=== PATIENT | female | born 1960 | race Caucasian/White ===

== ENCOUNTER → 2016-08-10 | Outpatient (CLI) | payer BC ==
[~2016-08-10] MED LIST: ALEN70TA4 PO; ANAS1TAB19 PO; CALC1TAB9 PO; CHOL100010 PO; LEVO88TA PO; LORA-741 PO; OMEP40CA PO; PRLSR20 PO; RANI150T3 PO; ZOLP10TA PO
== END | disposition home or self-care (01) ==
LOC: C.LABPVFM 14:20
PROVIDERS: ATTEND Internal Medicine Endocrinology, Diabetes & Metabolism
DX: E03.9 Hypothyroidism, unspecified (principal); M81.0 Age-related osteoporosis without current pathological fracture; E34.9 Endocrine disorder, unspecified

== ENCOUNTER → 2016-08-26 | Outpatient (CLI) | payer BC ==
[2016-08-26 09:53] LABS: CALCIUM 10.4 mg/dl (8.5-10.1)
[2016-08-26 10:08] LABS: THYROID STIMULATING HORMONE 1.27 uIu/ml (0.300-4.500)
== END | disposition home or self-care (01) ==
LOC: C.LAB1850 08:17
PROVIDERS: ATTEND Internal Medicine Endocrinology, Diabetes & Metabolism
DX: E06.3 Autoimmune thyroiditis (principal); E34.9 Endocrine disorder, unspecified

== ENCOUNTER → 2016-11-10 | Outpatient (CLI) | payer BC ==
[~2016-11-10] MED LIST changes: -OMEP40CA PO; -RANI150T3 PO
--- NOTE | 2016-11-10 16:52 | MAMMOGRAPHY REPORT ---
UNILATERAL RIGHT DIGITAL DIAGNOSTIC MAMMOGRAM TOMOSYNTHESIS WITH CAD AND TARGETED RIGHT ULTRASOUND: 11/10/2016 CLINICAL HISTORY: 56-year-old woman with a personal history of left breast cancer presents for follo w-up in the right breast. There is a probable microcyst cluster seen in the 9:00 axis on targeted u ltrasound. TECHNIQUE: Right breast tomosynthesis in addition to standard 2D mammography was performed. Current study was also evaluated with a Computer Aided Detection (CAD) system. COMPARISON: Comparison is made to exams dated: 05/12/2016 ultrasound, 05/12/2016 mammogram, 016 mammogram, 04/10/2015 mammogram, 02/07/2014 mammogram, and 02/03/2013 ultrasound - [facility]. BREAST COMPOSITION: The tissue of the right breast is heterogeneously dense, which may obscure smal l masses. FINDINGS: The parenchymal pattern of the right breast is similar to prior mammograms. Again seen is an oval, 6.4 mm circumscribed mass in the lateral anterior aspect of the breast (CC tomosynthesis s lice 18). There are scattered benign-appearing coarse and round microcalcifications. No new suspic ious mass, architectural distortion or cluster of microcalcifications is seen. Repeat targeted ultrasound was performed in the 9:00 axis of the right breast. In the 9:00 periareo lar breast, a microcyst cluster is again identified, measuring 4.8 x 3.7 x 5.5 mm. Another anechoic cyst with thin internal nonvascular septation is seen in the 8:00 right breast, 2 cm from the nippl e, measuring 4.8 x 2.0 x 4.4 mm. No suspicious solid mass is seen in the visualized right breast on ultrasound. IMPRESSION: ACR BI-RADS CATEGORY 2: BENIGN, TARGETED ULTRASOUND ACR BI-RADS CATEGORY 2: BENIGN There is a stable benign microcyst cluster in the 9:00 periareolar right breast, which is thought to correlate with a circumscribed oval mammographic mass, which is also stable. Overall, there is no mammographic or targeted sonographic evidence of malignancy in the right breast. Recommend follow-u p at time of next annual screening (2016) and would recommend remaining a diagnost ic patient in case any additional mammographic views and/or ultrasound are needed, given the persona l history of left breast cancer. These results and recommendations were discussed with the patient at the time of the exam. Approximately 10% of breast cancers are not detected with mammography. A negative mammographic repor t should not delay biopsy if a clinically suggestive mass is present. Lor Sorenson M.D. ay/:11/10/2016 16:18:25 Dialysis Biomed Technician: Elin ARCE(Agnieszka)(M), [facility] letter sent: Normal 1/2 BI-RADS Code: ACR BI-RADS Category 2: Benign Ultrasound BI-RADS: ACR BI-RADS Category 2: Benign
== END | disposition home or self-care (01) ==
LOC: C.MAMM 09:18
PROVIDERS: ATTEND Nurse Practitioner
DX: Z09 Encounter for follow-up examination after completed treatment for conditions other than malignant neoplasm (principal); N63 Unspecified lump in breast; Z85.3 Personal history of malignant neoplasm of breast

== ENCOUNTER 2016-11-25 05:11 | Day surgery (SDC) | payer BC ==
[2016-11-04 09:47] VITALS: BMI 29.0
--- NOTE | 2016-11-04 10:19 | PAT Medication Instructions ---
Service Date Nov 04, 2016. Current Home Medication List Alendronate Sodium (Fosamax), 1 TAB PO WK Anastrozole (Arimidex), 1 MG PO DAILY Calcium Citrate-Vitamin D (Citracal + D3 Maximum), 1 TAB PO QPM Cholecalciferol (Vitamin D), 2,000 INTER.UNIT PO DAILY Levothyroxine Sodium (Synthroid), 1 TAB PO DAILY Lorazepam (Ativan), 0.5 MG PO HS Omeprazole (Prilosec), 20 MG PO QAM Zolpidem Tartrate (Ambien), 10 MG PO HS Medication Instructions For Your Scheduled Surgery - Check with surgeon/prescribing physician for instructions: Alendronate Sodium (Fosamax), 1 TAB PO WK Anastrozole (Arimidex), 1 MG PO DAILY - Take the following medications the morning of surgery with a sip of water: Omeprazole (Prilosec), 20 MG PO QAM Levothyroxine Sodium (Synthroid), 1 TAB PO DAILY - Take the following medications as scheduled the night before surgery: Zolpidem Tartrate (Ambien), 10 MG PO HS Lorazepam (Ativan), 0.5 MG PO HS Calcium Citrate-Vitamin D (Citracal + D3 Maximum), 1 TAB PO QPM Cholecalciferol (Vitamin D), 2,000 INTER.UNIT PO DAILY If you have any questions please call us at [phone] (Melonie Wild PA-C) or [phone] or [phone]
[2016-11-04 11:03] LABS: BASO % 0.4 %; BASO ABS # 0.02 K/uL (0-0.2); COMPLETE YES; EOS % 4.8 %; HEMATOCRIT 43.7 % (37-47); LYMPH % 28.1 %; LYMPH ABS # 1.41 K/uL (1.2-3.4); MEAN CELL VOLUME 89.2 fL (80-100); MEAN CORPUSCULAR HEMOGLOBIN 28.8 pg (25-34); MEAN CORPUSCULAR HGB CONC 32.3 g/dl (32-36); MEAN PLATELET VOLUME 10.4 fL (7.4-10.4); MONO % 5.2 %; NEUT % 61.5 %; PLATELET COUNT 243 K/uL (130-400); WHITE BLOOD COUNT 5.02 K/uL (4.8-10.8)
[2016-11-04 11:14] LABS: BUN/CREATININE RATIO 17.6 (10-20); CALCIUM 10.1 mg/dl (8.5-10.1); CREATININE 0.78 mg/dl (0.60-1.20); POTASSIUM 4.8 mmol/L (3.5-5.1)
[~2016-11-25] VITALS: Ht 157.5 cm; Wt 72.8 kg
[2016-11-25 05:51] VITALS: BP 140/87; PULSE 76; TEMP 36.7; O2SAT 98; Ht 157.5 cm; Wt 72.8 kg
[2016-11-25] MEDS ORDERED: LACTATED RINGER'S 1000ML 1,000 ML IV SCH (06:00)
[2016-11-25] MEDS ORDERED: CEFAZOLIN 2000 MG/60 ML D5W IV SCH (06:00)
--- NOTE | 2016-11-25 06:29 | History & Physical Bridge Note ---
H&P Re-Evaluation Bridge Note: I have examined the patient, reviewed the History & Physical and in the interval since the performance of the History & Physical I have noted the following changes of clinical significance: No changes noted
--- NOTE | 2016-11-25 06:33 | History and Physical ---
History & Physical Date November 25, 2016. Chief Complaint PRIMARY HYPERPARATHYROIDISM History of Present Illness The patient is a 56 year old female with complaints of PRIMARY HYPERPARATHYROIDISM WITH SESTAMIBI SCAN 02/2015 SUGGESTING RIGHT INFERIOR PARATHYROID ADENOMA. 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 DEPRESSION 4. FABIO'S THYROIDITIS 5. HYPOTHYROIDISM 6. LPR 7. OSTEOPOROSIS 8. VITAMIN D DEFICIENCY PSH: 1. S/P MASTECTOMY Additional History Hepatic Disease: No Endocrine Disorder: No Kidney Disease: No Hypertension: No Heart Disease: No Bleeding Tendencies: No Infectious Diseases: No Allergies Coded Allergies: Procaine (Verified Adverse Reaction, Severe, hyperventilation, 11/25/16) Home Medications Scheduled Alendronate Sodium (Fosamax), 1 TAB PO WK Anastrozole (Arimidex), 1 MG PO DAILY Calcium Citrate-Vitamin D (Citracal + D3 Maximum), 1 TAB PO QPM Cholecalciferol (Vitamin D), 2,000 INTER.UNIT PO DAILY Levothyroxine Sodium (Synthroid), 1 TAB PO DAILY Lorazepam (Ativan), 0.5 MG PO HS Omeprazole (Prilosec), 20 MG PO QAM Zolpidem Tartrate (Ambien), 10 MG PO HS Physical Examination Skin: warm/dry, no rash Eyes: normal inspection, EOMI, sclerae normal ENT: normal ENT inspection, pharynx normal Head: normocephalic, atraumatic Neck: supple, no adenopathy, trachea midline Respiratory/Chest: lungs clear, normal breath sounds, no respiratory distress Cardiovascular: regular rate, rhythm, no edema, no murmur Neurologic/Psych: no motor/sensory deficits, alert, normal reflexes, oriented x 3 Diagnosis PRIMARY HYPERPARATHYROIDISM Plan of Treatment PARATHYROIDECTOMY
[2016-11-25] MEDS ORDERED: LIDOCAINE/EPINEPHRINE 1% 20 ML VIAL ONE (06:59)
[2016-11-25] MEDS ORDERED: ATROPINE SULFATE 0.1 MG/ML 5ML SYR IV PRN (07:00)
[2016-11-25] MEDS ORDERED: EpHEDrine SULFATE INJ 50 MG/ML AMP IV PRN (07:00)
[2016-11-25] MEDS ORDERED: BACITRACIN OINT 15 GM TUBE ONE (07:00)
[2016-11-25] MEDS ORDERED: THROMBIN 5000 UNITS KIT ONE (07:00)
[2016-11-25] MEDS ORDERED: FENTANYL CITRATE INJ 50 MCG/1 ML 2 ML VIAL IV PRN (07:00)
[2016-11-25] MEDS ORDERED: ONDANSETRON INJ 2 MG/ML 2 ML VIAL IV PRN (07:00)
[2016-11-25] MEDS ORDERED: MIDAZOLAM HCL 1 MG/ML 2ML VIAL ONE (07:01)
[2016-11-25] MEDS ORDERED: FENTANYL CITRATE INJ 50 MCG/1 ML 2 ML VIAL ONE (07:01)
[2016-11-25] MEDS ORDERED: KETAMINE HCL INJ 50 MG/ML 10 ML VIAL ONE (07:02)
[2016-11-25] MEDS ORDERED: HYDROmorphone INJ 2 MG/ML SYR/VIAL ONE (07:51)
[2016-11-25] MEDS ORDERED: DEXAMETHASONE SOD INJ 4 MG/ML VIAL ONE (08:09)
[2016-11-25] MEDS ORDERED: ROCURONIUM BROMID 50MG/5ML SYR ONE (08:09)
[2016-11-25] MEDS ORDERED: PROPOFOL IV EMULSION 10 MG/ML 20 ML VIAL IV ONE (08:09)
[2016-11-25] MEDS ORDERED: SUCCINYLCHOLINE CHLORIDE 20 MG/ML 10 ML VIAL IV ONE (08:09)
[2016-11-25] MEDS ORDERED: ONDANSETRON INJ 2 MG/ML 2 ML VIAL ONE (08:09)
[2016-11-25] MEDS ORDERED: LIDOCAINE HCL 2% 2 ML VIAL (20MG/ML) ONE (08:09)
[2016-11-25] MEDS ORDERED: SURGICEL ABSORB HEMOSTAT 2IN X 14IN TOP ONE (08:14)
--- NOTE | 2016-11-25 08:41 | [facility] Operative Report ---
Operative Report Operative Date November 25, 2016. Pre-Operative Diagnosis PRIMARY HYPERPARATHYROIDISM Post-Operative Diagnosis SAME Procedure(s) Performed RIGHT INFERIOR PARATHYROIDECTOMY Surgeon Dr. Song Ospina Risk Management Intern Surgeon(s) Lin Hidalgo PA-C Estimated Blood Loss none per surgeon Findings 1. HYPERCELLULAR PARATHYROID CONSISTENT WITH PARATHYROID ADENOMA ON FROZEN SECTION OF RIGHT INFERIOR PARATHYROID GLAND 2. PTH WENT FROM 86.4 TO 22.3 10 MINUTES AFTER REMOVAL OF THE OFFENDING GLAND Specimens Frozen #1: Right anterior parathyroid I attest to the content of the Intraoperative Record and any orders documented therein. Any exceptions are noted below.
--- NOTE | 2016-11-25 08:43 | Discharge Instructions ---
Discharge Instructions Date of Service November 25, 2016. Admission Reason for Admission: Hyperparathyroidism, Hypercalcemia Discharge Discharge Diagnosis / Problem: SAME Discharge Goals Goal(s): Therapeutic intervention Activity Recommendations Activity Limitations: as noted below 1. KEEP INCISION DRY FOR 1WEEK 2. ICE TO NECK MUCH TOLERATED FOR 1WEEK 3. LIGHT ACTIVITY FOR 2WEEKS 4. NO DRIVING WHILE ON NORCO . Current Hospital Diet Patient's current hospital diet: Discharge Diet Recommended Diet: Regular Diet Procedures Procedures Performed: Parathyroidectomy Pending Studies Studies pending at discharge: no Medical Emergencies . Who to Call and When: Medical Emergencies: If at any time you feel your situation is an emergency, please call 911 immediately. . Non-Emergent Contact Non-Emergency issues call your: Surgeon . . "Provider Documentation" section prepared by Song Ospina. . VTE Core Measure Inpt VTE Proph given/why not?: SCD's
[2016-11-25] MEDS ORDERED: HYDROCODONE/ACETAMOPHEN 5/325MG TAB PO PRN (08:45)
[2016-11-25] MEDS ORDERED: NURSING VERBAL MED ORDER ONE (09:15)
[2016-11-25] MEDS ORDERED: LABETALOL HCL IV 5 MG/ML 20ML IV ONE (09:15)
--- NOTE | 2016-11-25 09:26 | OPERATIVE REPORT ---
DATE OF OPERATION: 11/25/2016 PREOPERATIVE DIAGNOSIS: Primary hyperparathyroidism. POSTOPERATIVE DIAGNOSIS: Primary hyperparathyroidism. PROCEDURE: Right inferior parathyroidectomy. SURGEON: Dr. Ospina. STUDIO DESIGNER: Lin Hidalgo PA-C. ESTIMATED BLOOD LOSS: Zero. FINDINGS: 1. Hypercellular right inferior parathyroid gland consistent with parathyroid adenoma on frozen section. 2. Preoperative PTH of 86.4 which decreased to intraoperative PTH of 22.3 10 minutes after removing the right inferior parathyroid adenoma. SPECIMENS: Right inferior parathyroid gland for frozen section diagnosis. DRAINS: None. COMPLICATIONS: None. INDICATIONS FOR THE PROCEDURE: The patient is a pleasant 56-year-old female with a history of primary hyperparathyroidism who also has osteoporosis and perhaps fatigue who had a sestamibi scan in February 2015 suggesting a right inferior parathyroid adenoma. She was referred by Dr. Hollingsworth, her director inbound sales, to ar for surgical treatment. She presents for the above-mentioned procedure on an outpatient elective basis. OPERATION AND FINDINGS: DETAILS OF PROCEDURE: After informed consent had been obtained from the patient, the patient was wheeled to the operating room and placed on the operating table in the supine position. Monitors were placed. After induction of general endotracheal anesthesia with a size 6 nerve integrity monitor endotracheal tube the patient's head and neck were gently extended and a marking pen was used to outline the planned 5 cm incision in a natural skin crease 2 fingerbreadths above the level of the clavicles. Lidocaine 1% 3 mL with 1:100,000 epinephrine was used to inject the skin and subcutaneous tissues overlying the planned incision site. The skin of the neck and chest were then prepped and draped in the usual sterile fashion. A #15 scalpel was then used to make the incision through the skin, subcutaneous tissue, and platysma. Subplatysmal flaps were raised superiorly and inferiorly. The median raphe of the strap muscles was divided using Bovie electrocautery. The strap muscles were retracted laterally and immediately a likely right inferior parathyroid gland was noted inferior to the inferior aspect of the right thyroid lobe and quite anterior as well. Blunt and sharp dissection was used to remove the parathyroid gland with care to identify and preserve the right recurrent laryngeal nerve. The specimen was sent off for frozen pathological specimen. Frozen section diagnosis revealed a hypercellular parathyroid gland consistent with adenoma. The anesthesia team performed a venue puncture on the right hand 10 minutes after removal of the parathyroid adenoma and the PTH came back at 22.3, down from 86.4 preoperatively. This indicated surgical cure. The wound was copiously irrigated and suctioned. Small pieces of Surgicel followed by topical spray thrombin were placed into the right tracheoesophageal groove for added hemostatic effect. The strap muscles were reapproximated in the midline using a simple running interlocked 3-0 Vicryl suture. The platysma was then closed with several deep 4-0 Monocryl sutures. The skin was then closed with a simple running subcuticular 5-0 Monocryl suture. Incision was cleansed and dried. Dermabond was applied to the incision. This marked the end of the case. The patient tolerated the procedure well. There were no apparent complications. The patient was extubated and transferred to recovery room in stable condition. I attest to the content of the Intraoperative Record and any orders documented therein. Any exceptio ns are noted below.
[2016-11-25 09:45] VITALS: BP 159/93; PULSE 84; TEMP 36.5; O2SAT 96
--- NOTE | 2016-11-25 10:13 | Anesthesiology Progress Note ---
Anesthesia Post Op Note Date & Time November 25, 2016 at 10:13 Vital Signs Pain Intensity: 0 Vital Signs Past 12 Hours Date Time Temp Pulse Resp B/P Pulse Ox O2 Delivery O2 Flow Rate FiO2 11/25/16 09:45 36.5 84 18 159/93 96 Room Air 11/25/16 09:39 36.8 11/25/16 09:30 86 16 157/98 94 Room Air 11/25/16 09:20 90 16 159/100 100 Mask 10 11/25/16 09:10 104 16 165/100 100 Mask 10 11/25/16 09:00 36.5 107 16 173/105 100 Mask 10 11/25/16 05:51 36.7 76 18 140/87 98 Room Air Notes Mental Status: alert / awake / arousable, participated in evaluation Pt Amnestic to Procedure: Yes Nausea / Vomiting: adequately controlled Pain: adequately controlled Airway Patency, RR, SpO2: stable & adequate BP & HR: stable & adequate Hydration State: stable & adequate Anesthetic Complications: no major complications apparent
[2016-11-25 10:15] VITALS: BP 150/89; PULSE 83; O2SAT 96
[2016-11-25 10:47] VITALS: BP 148/87; PULSE 84; TEMP 36.6; O2SAT 96
== END 2016-11-25 11:39 | disposition home or self-care (01) ==
LOC: C.ACU 05:11
DX: E21.0 Primary hyperparathyroidism (principal); E83.52 Hypercalcemia; F32.9 Major depressive disorder, single episode, unspecified; E06.3 Autoimmune thyroiditis; M81.0 Age-related osteoporosis without current pathological fracture; E03.9 Hypothyroidism, unspecified; Z90.10 Acquired absence of unspecified breast and nipple; E55.9 Vitamin D deficiency, unspecified; Z85.3 Personal history of malignant neoplasm of breast

== ENCOUNTER → 2016-12-09 | Outpatient (CLI) | payer BC | END | disposition home or self-care (01) | LOC: C.LAB1850 10:25 | PROVIDERS: ATTEND Internal Medicine Endocrinology, Diabetes & Metabolism | DX: E21.3 Hyperparathyroidism, unspecified (principal) ==

== ENCOUNTER → 2017-04-07 | Outpatient (CLI) | payer BC ==
[2017-04-07 12:51] LABS: CALCIUM 9.3 mg/dl (8.5-10.1)
[2017-04-07 13:02] LABS: CHOLESTEROL/HDL RATIO 2.8
[2017-04-07 13:05] LABS: THYROID STIMULATING HORMONE 1.79 uIu/ml (0.300-4.500)
== END | disposition home or self-care (01) ==
LOC: C.LABPVFM 08:30
PROVIDERS: ATTEND Internal Medicine Endocrinology, Diabetes & Metabolism
DX: K21.9 Gastro-esophageal reflux disease without esophagitis (principal); Z13.220 Encounter for screening for lipoid disorders; E03.9 Hypothyroidism, unspecified; E55.9 Vitamin D deficiency, unspecified; M81.0 Age-related osteoporosis without current pathological fracture; E06.3 Autoimmune thyroiditis

== ENCOUNTER → 2017-04-27 | Outpatient (CLI) | payer BC ==
[2016-04-22 13:15] VITALS: BP 126/85; PULSE 69
[2017-04-27 13:19] VITALS: BP 135/89; PULSE 79; TEMP 36.9; O2SAT 95
--- NOTE | 2017-04-27 15:34 | Radiation Oncology Follow-Up ---
Radiation Oncology Follow-Up Date of Visit Apr 27, 2017. 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 Mammogram was indeterminate therefore she underwent a left diagnostic mammogram and targeted left ultrasound on February 03, 2013. It showed architectural distortion of the left breast at the 1:00 anterior depth this is seen and additional views is more prominent there is nipple retraction associated with architectural distortion. Target ultrasound demonstrates 2 oval masses with circumscribed margins. These oval masses are hypoechoic and measures 13 mm and 6 mm respectively. Patient has a had for benign surgeries at this location. Is unclear whether the progressive distortion reflects postsurgical scar carcinoma. For this reason an MRI the breast is recommended in followup. On February 10, 2013 the patient underwent an MRI of bilateral breasts which showed a large area of architectural distortion and enhancement within the left breast within the upper outer quadrant anteriorly. This is a BI-RADS 4 study and stereotactic biopsy is recommended in followup . Patient did undergo a biopsy on February 20, 2013 which showed an invasive lobular carcinoma low grade not pleomorphic. Mitotic score 1/3, nuclear score 1/3, tubular score 3 out of 3 , tumor size 13 and 6 mm on imaging. No lymphovascular invasion, no perineural invasion. The tumor is estrogen receptor positive moderate to strongly diffuse 80% of cells, progestogen receptor weak +5% of cells and HER-2/tamara negative by IHC and FISH. Patient also had a PET CT scan on March 06, 2013 showed no evidence for metastatic disease. On April 26, 2013, she then underwent a left mastectomy with a sentinel lymph node dissection. The mastectomy specimen showed infiltrating lobular carcinoma grade 1/3. Margins free of neoplasm. She had one out of 3 lymph nodes that was positive for metastatic disease. There were 2 foci one measured 0.1 cm and the other measured 0.05 cm therefore there might for metastasis and there is no extra ivana extension. The patient did have Oncotype DX testing that showed a recurrence score of 22 which corresponds to an average rate of distant recurrence of 14%. The patient was referred for radiation therapy to the chest wall and the axillary bed which she finished on August 15, 2013 Interim History She has noticed no changes to the chest wall over this past year. There've been no masses or tenderness no change of the axilla. She has no swelling of her arm. She is up-to-date on mammography for the right breast. She did undergo a parathyroidectomy in November. She had no difficulties following surgery. She did not experience any episodes of lymphedema over this past year. She did travel by air to the [facility] last year. She were the sleeve was prescribed. She did not have any lymphedema as a consequence of that trip. Allergies Coded Allergies: Procaine (Verified Adverse Reaction, Severe, hyperventilation, 11/25/16) Home Medications Scheduled Anastrozole (Arimidex), 1 MG PO DAILY Calcium Citrate-Vitamin D (Citracal + D3 Maximum), 1 TAB PO QPM Cholecalciferol (Vitamin D), 2,000 INTER.UNIT PO DAILY Levothyroxine Sodium (Synthroid), 1 TAB PO DAILY Omeprazole (Prilosec), 20 MG PO QAM Zolpidem Tartrate (Ambien), 10 MG PO HS Review of Systems Gastrointestinal: Symptoms: WNL GI Comments: Slight constipation - takes fiber PRN Oral: Symptoms: No Problems Other Oral Symptoms: Had parathyroid removed, occaisonal cold sore Respiratory: Symptoms: WNL Other Respiratory: Currently has seasonal cold Urinary: Symptoms: WNL Skin: Symptoms: No Problems Other Skin Symptoms: Dry - uses aquaphor Breast: Right Upper Arm Measurement: 30.1 Right Mid Arm Measurement: 23.0 Right Wrist Measurement: 15.7 Left Upper Arm Measurement: 31.9 Left Mid Arm Measurement: 22.5 Left Wrist Measurement: 15.5 Arm Dominence: Right Patient Cosmetic Evaluation: Good Staff Cosmetic Evalaluation: Good Physical Exam Vital Signs Date Time Temp Pulse Resp B/P (MAP) Pulse Ox O2 Delivery O2 Flow Rate FiO2 04/27/17 13:19 36.9 79 16 135/89 95 Pain: Side: Bilateral Patient Pain Scale: 0 - 10 Initial Pain Intensity: 0.0 General Appearance: no apparent distress Eyes: normal inspection, EOMI ENT: normal ENT inspection, hearing grossly normal Neck: no adenopathy, thyroid normal Respiratory/Chest: lungs clear, no respiratory distress, no accessory muscle use Breast: Breast examination reveals status post mastectomy on the left. There are no masses or tenderness and no axillary adenopathy. 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 Using the [place] score cosmesis she has a fair outcome. Right breast showed no masses or tenderness and no axillary adenopathy. Cardiovascular: regular rate, rhythm, no gallop, no murmur Extremities: no pedal edema Neurologic/Psychiatric: no motor/sensory deficits, alert, normal mood/affect Skin: warm/dry Laboratory Studies Test 04/07/17 08:35 Calcium Level 9.3 mg/dl (8.5-10.1) Triglycerides Level 76 mg/dl (0-150) Cholesterol Level 176 mg/dl (0-200) HDL Cholesterol 62 mg/dl LDL Cholesterol, Calculated 99 mg/dl VLDL Cholesterol, Calculated 15 mg/dl Cholesterol/HDL Ratio 2.8 25-Hydroxy Vitamin D Total 59.3 ng/ml (30-100) Thyroid Stimulating Hormone (TSH) 1.790 uIu/ml (0.300-4.500) Parathyroid Hormone (Intact) 51.0 pg/mL (11.1-79.5) Additional Studies Patient Name: MARV ALDRIDGE Unit Number: [id number] Fire Production Operator: Jonatan [employer] Trans. Date/Time: 11/10/161617 Tech: STEWST Printed Date/Time: [~ rep prt dt]/[~ rep prt tm] [~ rep ct labl] - [~ rep ct ivnm] [facility], [address] [place] [address] Fire Production Operator: [employer]. Date/Time: 11/10/161617 Tech: STEWST Printed Date/Time: [~ rep prt dt]/[~ rep prt tm] [~ rep ct labl] - [~ rep ct ivnm] Patient: MARV ALDRIDGE Med Rec: [id number] Address1: [address] [place] [address] Address2: Acct ID: [id number] Date: 1960 Sex: F Ref Phy: Mary Durand C.R.N.P Att Phy: Mary Durand C.R.N.P Joan Phy: Mary Durand C.R.N.P Inter Phy: Lor Sorenson MD [facility] Zip: [place] [address] SC: C.MAMM Report #: [id number] Health And Wellness Coordinator: STEWST Diagnosis: 6 MO F/U RIGHT Service Date: 11/10/16 MNE: MAMM1 Ordering Dr: Mary Durand CC: Mary Durand C.R.N.P CONF: DICTATED BY: Lor Sorenson MD MAMMOGRAPHY REPORT UNILATERAL RIGHT DIGITAL DIAGNOSTIC MAMMOGRAM TOMOSYNTHESIS WITH CAD AND TARGETED RIGHT ULTRASOUND: 11/10/2016 CLINICAL HISTORY: 56-year-old woman with a personal history of left breast cancer presents for follow-up in the right breast. There is a probable microcyst cluster seen in the 9:00 axis on targeted ultrasound. TECHNIQUE: Right breast tomosynthesis in addition to standard 2D mammography was performed. Current study was also evaluated with a Computer Aided Detection (CAD) system. COMPARISON: Comparison is made to exams dated: 05/12/2016 ultrasound, 2015 mammogram, 04/27/2016 mammogram, 04/10/2015 mammogram, 02/07/2014 mammogram, and 02/03/2013 ultrasound - [facility]. BREAST COMPOSITION: The tissue of the right breast is heterogeneously dense, which may obscure small masses. FINDINGS: The parenchymal pattern of the right breast is similar to prior mammograms. Again seen is an oval, 6.4 mm circumscribed mass in the lateral anterior aspect of the breast (CC tomosynthesis slice 18). There are scattered benign-appearing coarse and round microcalcifications. No new suspicious mass, architectural distortion or cluster of microcalcifications is seen. Repeat targeted ultrasound was performed in the 9:00 axis of the right breast. In the 9:00 periareolar breast, a microcyst cluster is again identified, measuring 4.8 x 3.7 x 5.5 mm. Another anechoic cyst with thin internal nonvascular septation is seen in the 8:00 right breast, 2 cm from the nipple, measuring 4.8 x 2.0 x 4.4 mm. No suspicious solid mass is seen in the visualized right breast on ultrasound. IMPRESSION: ACR BI-RADS CATEGORY 2: BENIGN, TARGETED ULTRASOUND ACR BI-RADS CATEGORY 2: BENIGN There is a stable benign microcyst cluster in the 9:00 periareolar right breast , which is thought to correlate with a circumscribed oval mammographic mass, which is also stable. Overall, there is no mammographic or targeted sonographic evidence of malignancy in the right breast. Recommend follow-up at time of next annual screening (2016) and would recommend remaining a diagnostic patient in case any additional mammographic views and/or ultrasound are needed, given the personal history of left breast cancer. These results and recommendations were discussed with the patient at the time of the exam. Approximately 10% of breast cancers are not detected with mammography. A negative mammographic report should not delay biopsy if a clinically suggestive mass is present. Lor Sorenson M.D. ay/:11/10/2016 16:18:25 [employer]: Elin CANTU)(Brandyn), [facility] letter sent: Normal 1/2 BI-RADS Code: ACR BI-RADS Category 2: Benign Ultrasound BI-RADS: ACR BI-RADS Category 2: Benign Dictated by: Lor Sorenson MD Signed by: Lro Sorenson MD The status of this report is Signed. Draft = Not yet reviewed or approved by Radiologist. Signed = Reviewed and approved by Radiologist. <AttendingPhy>Mary Durand C.R.N.P</AttendingPhy> <FamilyPhy></FamilyPhy> < PrimaryPhy>Mary Durand C.R.N.P</PrimaryPhy> <UnitNumber>[id number]</ UnitNumber> <VisitNumber>[id number]</VisitNumber> <PatientName>MARV ALDRIDGE</PatientName> <DateOfBirth>1960</DateOfBirth> <Location>C.MAMM</ Location> <ServiceDate>11/10/16</ServiceDate> <MNE>MAMM1</MNE> <OrderingPhy> Mary Durand.Agnieszka.N.P</OrderingPhy> <OrderingPhyMNE>f rep ord dr tidwell</ OrderingPhyMNE> <DictatingPhyMNE>f rep dict dr tidwell</DictatingPhyMNE> <CCListMNE> f rep ct mne</CCListMNE> <AdmittingPhyMNE>f pt admit dr tidwell</AdmittingPhyMNE> < AttendingPhyMNE>f pt attend dr tidwell</AttendingPhyMNE> <ConsultingPhyMNE>f pt consult dr tidwell</ConsultingPhyMNE> <FamilyPhyMNE>f pt fam dr tidwell</FamilyPhyMNE> < OtherPhyMNE>f pt other dr tidwell</OtherPhyMNE> <PrimaryPhyMNE>f pt prim care dr tidwell </PrimaryPhyMNE> <ReferringPhyMNE>f pt referring dr tidwell</ReferringPhyMNE> Assessment & Plan Plan: Continue with scheduled mammography. Her next mammogram is 05/12/2017. Continue regular follow-up with her primary care physician. She'll continue to use the sleeve to avoid any reoccurrence of lymphedema. We asked her to return to our office in 1 year. She may call if she has any questions or concerns in the interim. Total Time In Follow-Up I spent 20 minutes speaking to the patient performing examination. I spent 15 minutes reviewing information in completing this no. AK Copy To Mary Durand C.R.N.P Problem Qualifiers (1) Carcinoma of upper-outer quadrant of left female breast: Estrogen receptor status: positive Qualified Codes: C50.412 - Malignant neoplasm of upper-outer quadrant of left female breast; Z17.0 - Estrogen receptor positive status [ER+]
== END | disposition home or self-care (01) ==
LOC: C.ONC 13:07
PROVIDERS: ATTEND Physician Assistant Medical
DX: Z08 Encounter for follow-up examination after completed treatment for malignant neoplasm (principal); Z92.3 Personal history of irradiation; Z85.3 Personal history of malignant neoplasm of breast

== ENCOUNTER → 2017-05-12 | Outpatient (CLI) | payer BC ==
[~2017-05-12] MED LIST changes: -ALEN70TA4 PO; -LORA-741 PO
--- NOTE | 2017-05-12 14:25 | MAMMOGRAPHY REPORT ---
UNILATERAL RIGHT DIGITAL DIAGNOSTIC MAMMOGRAM TOMOSYNTHESIS WITH CAD: 05/12/2017 CLINICAL HISTORY: 56-year-old woman with a personal history of left breast cancer status post mastect jose presents for routine evaluation of the right breast. TECHNIQUE: Right breast tomosynthesis in addition to standard 2D mammography was performed. Current s tudy was also evaluated with a Computer Aided Detection (CAD) system. COMPARISON: Comparison is made to exams dated: 11/10/2016 mammogram, 11/10/2016 ultrasound, 05/12/2016 ultrasound, 05/12/2016 mammogram, 04/27/2016 mammogram, and 04/10/2015 mammogram - [facility]. BREAST COMPOSITION: There are scattered areas of fibroglandular density in the right breast. FINDINGS: There is decreased nodularity in the 9:00 anterior right breast at the site of probable cys t cluster identified on prior diagnostic mammogram and ultrasound. There is no evidence of a [place] picious mass, asymmetry or focal area of architectural distortion. There are stable benign rim calci fications and loosely grouped round micro-calcifications in the right breast. IMPRESSION: ACR BI-RADS CATEGORY 2: BENIGN Stable mammographic appearance of the right breast, without mammographic evidence of malignancy. Rig ht-sided mammography is recommended in one year, and would also recommend remaining a diagnostic ai ent given the personal history of left breast cancer, in case any additional mammographic images and/ or ultrasound may be needed. These results and recommendations were discussed with the patient at the time of the exam. Approximately 10% of breast cancers are not detected with mammography. A negative mammographic report should not delay biopsy if a clinically suggestive mass is present. Lor Sorenson M.D. ay/:05/12/2017 09:02:28 Cyber Crime Investigator: Gloria ARCE(R)(M), [facility] letter sent: Normal 1/2 BI-RADS Code: ACR BI-RADS Category 2: Benign
== END | disposition home or self-care (01) ==
LOC: C.MAMM 08:33
PROVIDERS: ATTEND Nurse Practitioner
DX: Z85.3 Personal history of malignant neoplasm of breast (principal); Z90.12 Acquired absence of left breast and nipple; Z08 Encounter for follow-up examination after completed treatment for malignant neoplasm

== ENCOUNTER → 2017-09-28 | Outpatient (CLI) | payer BC | END | disposition home or self-care (01) | LOC: C.MAMM 14:51 | PROVIDERS: ATTEND Internal Medicine Hematology & Oncology | DX: C50.619 Malignant neoplasm of axillary tail of unspecified female breast (principal); M85.89 Other specified disorders of bone density and structure, multiple sites ==